=== PATIENT | male | born 1955 | race Caucasian/White ===

== ENCOUNTER 2019-08-13 01:49 | Observation (INO) | payer OTHER, SELFPAY ==
[2019-08-13] VITALS (12 sets, daily range): BP systolic 108–119; BP diastolic 65–78; PULSE 68–92; RESP 14–20; TEMP 36.6–37.3; O2SAT 96–100; BMI 26.1
--- NOTE | 2019-08-13 | ECHO_ITS ---
Patient Info Name: Terrence Song Age: 63 years : 1955 Gender: Male Ht: 74 in Wt: 203 lbs BSA: 2.20 m2 HR: 78 bpm BP: 118 / 78 mmHg Technical Quality: Good Exam Date: 08/13/2019 9:36 AM Exam Location: [facility] Pulmonary Exam Room: [facility] Patient Status: Inpatient Admit Date: 08/13/2019 Staff Ordering Physician: Nisha Benitez MD Drum Handler: Naomi Antoine RDCS Attending Provider: Hany Farris MD Exam Type: CA echo doppler color flow Study Info Indications - unresponsive seizure Complete two-dimensional, color flow and Doppler transthoracic echocardiogram is performed. Summary 1. Left ventricular chamber dimension is normal. 2. Left ventricular systolic function is normal, estimated at 65-70%. 3. The left ventricular diastolic function is grade II diastolic dysfunction. 4. E/e' 7 is not elevated. 5. There is mild aortic valve sclerosis. 6. There is mild aortic valve regurgitation. 7. There is trace tricuspid valve regurgitation. 8. No pulmonary hypertension, estimated pulmonary arterial systolic pressure is 25 mmHg. 9. There is trace pulmonic regurgitation. Left Ventricle E/e' 7 is not elevated. Left ventricular chamber dimension is normal. Left ventricular systolic function is normal, estimated at 65-70%. The left ventricular diastolic function is grade II diastolic dysfunction. Right Ventricle Right ventricular chamber dimension is normal. Right ventricular systolic function is normal. Left Atria Left atrial chamber dimension is normal. Right Atria Right atrial chamber dimension is normal. Aortic Valve The aortic valve is trileaflet. There is mild aortic valve sclerosis. There is no aortic valve stenosis. There is mild aortic valve regurgitation. Pulmonic Valve There is trace pulmonic regurgitation. Mitral Valve There is no mitral valve stenosis. There is no mitral valve regurgitation. Tricuspid Valve There is trace tricuspid valve regurgitation. No pulmonary hypertension, estimated pulmonary arterial systolic pressure is 25 mmHg. Pericardium/Pleural There is no pericardial effusion. Inferior Vena Cava Normal inferior vena cava with >50% collapse upon inspiration consistent with normal right atrial pressure, 5 mmHg. Aorta The aortic root size at the sinus of Valsalva is normal. Left Ventricular Outflow Tract Name Value Normal LVOT 2D LVOT Diameter 2.1 cm LVOT Doppler LVOT Peak Gradient 3 mmHg LVOT Mean Gradient 2 mmHg LVOT VTI 20 cm LVOT VTI/AV VTI Ratio 0.9 LVOT Stroke Volume 68 ml LVOT CO 12.6 l/min LVOT CI 5.7 l/min/m2 Pulmonic Valve Name Value Normal PV Doppler
--- NOTE | ~2019-08-13 | XR_ITS ---
EXAMINATION: XR chest 2V DATE: 08/13/2019 02:15 INDICATION: Seizure. Possible aspiration. TECHNIQUE: frontal and lateral views of the chest were obtained. COMPARISON: Chest radiograph dated 01/19/2013 FINDINGS: Small calcified nodules in the left lower lung zone and calcified left hilar and mediastinal lymph no onra consistent with old granulomatous disease. Mild apical pleural-parenchymal scarring. No other air space opacities, pulmonary edema, pleural effusion or pneumothorax. The cardiomediastinal silhouette is normal. Chronic mild anterior wedging of a midthoracic vertebral body. IMPRESSION: 1. No acute cardiopulmonary disease. Reviewed, dictated and finalized at location A. [employer]OR OF SPECIAL EVENTS
--- NOTE | ~2019-08-13 | CT_ITS ---
EXAMINATION: CT brain wo con DATE: 08/13/2019 02:10 INDICATION: Seizure TECHNIQUE: Computed tomography (CT) of the head was performed without intravenous contrast. The mA wa s adjusted according to patient size. Iterative reconstruction technique was employed. Exam dose: 68 1.00 mGy-cm total exam DLP. COMPARISON: 01/19/2013 CT brain 10/30/2016 MRI brain FINDINGS: No intracranial mass lesion or hemorrhage or cerebrovascular accident is detected. No midli ne shift or mass effect. Normal ventricular size. Carotid siphon internal carotid artery calcificatio ns are noted. No subdural or epidural hematoma is detected. No fracture or bone destruction of the cranial vault. Included paranasal sinuses and mastoid air cell s are unremarkable. IMPRESSION: No acute intracranial finding Reviewed, dictated and finalized at Location A. Reviewed, dictated and finalized at location B. POINTER
--- NOTE | ~2019-08-13 | US_ITS ---
EXAMINATION: US carotid duplex BI DATE: 08/13/2019 12:08 INDICATION: Seizure. Encephalopathy with unresponsive episode. TECHNIQUE: Grayscale, color Doppler, and pulsed Doppler images of the cervical carotid arteries were obtained. The degree of vessel stenosis is placed in one of the following categories: normal, <50%, 5 0-69%, >=70% but less than near-occlusion, near-occlusion, or total occlusion. Note that percent sten osis relative to normal distal artery lumen diameter is indirectly measured from velocity measurement s as described by Frankie, et al. Radiology 2003; 229:340-346. COMPARISON: 01/26/2004 FINDINGS: RIGHT: The right common carotid artery (CCA) peak systolic velocity (PSV) is 106 cm/s. The right internal ca rotid artery (ICA) PSV is 112 cm/s. The right ICA end-diastolic velocity (EDV) is 29 cm/s. The right ICA/CCA PSV ratio is 1.0. Grayscale and color Doppler images yield an estimate of <50% diameter reduc tion from plaque in the ICA. The external carotid artery (ECA) PSV is recorded on the summation image as 96 cm/s however the source image was not recorded. There is antegrade flow in the right vertebral artery. LEFT: The left CCA PSV is 115 cm/s. The left ICA PSV is 86 cm/s. The left ICA EDV is 31 cm/s. The left ICA/ CCA PSV ratio is 115. Grayscale and color Doppler images yield an estimate of <50% diameter reduction from plaque in the ICA. The ECA PSV is 1:15 cm/s. There is antegrade flow in the left vertebral milton ry. IMPRESSION: 1. <50% stenosis in the right internal carotid artery. 2. <50% stenosis in the left internal carotid artery. Reviewed, dictated and finalized at location A. PE WHEEL TOOTH CUTTER
--- NOTE | ~2019-08-13 | MR_ITS ---
EXAMINATION: MR brain/brain stem wo/w con DATE: 08/13/2019 08:02 INDICATION: Seizure TECHNIQUE: Magnetic resonance imaging (MRI) of the brain and brainstem was performed without and with 15 mL Multihance intravenous contrast. Sequences included sagittal and axial T1-weighted SE, axial d iffusion-weighted FS SE, axial T2*-weighted GRE, axial T2-weighted FLAIR, and axial T2-weighted FSE. Postcontrast axial, sagittal and coronal T1-weighted SE was obtained. Apparent diffusion coefficient (ADC) maps were created. COMPARISON: Head CT dated 08/13/2019 and brain MR dated 10/30/2016 FINDINGS: With well-defined 2.5 cm region of vasogenic edema sparing the overlying aguilar matter and with mild as sociated mass effect which results in mild enlargement of a gyrus in the left frontal lobe. Within th e region of vasogenic edema there is an 8 x 4 x 6 mm avidly enhancing lesion positioned somewhat ecce ntrically within the more cephalad and posterior aspect of the region of edema. There is significantl y more subtle and slightly larger ill-defined region of enhancement measuring up to 11 mm diameter lo cated more anteriorly and inferiorly within the region of edema. These regions of enhancement appear to correspond to the slightly hyperdense lesion identified on the prior head CT. There are no areas o f restricted diffusion to suggest acute infarction. No intracranial hemorrhage. There are a few addit ional scattered areas of nonspecific increased T2-weighted signal intensity in the cerebral white mat ter, predominantly involving the deep and periventricular white matter and without associated enhanci ng lesions most likely sequela of chronic small vessel ischemic disease. There are no intraparenchyma l signal abnormalities seen on the other pulse sequences. The ventricles are symmetric and normal in size. There are no abnormal extra-axial fluid collections. Flow voids are seen in the cerebral arteri es on the T2-weighted sequences consistent with their expected patency. Diffuse mild mucosal thickeni ng throughout the paranasal sinuses. Visualized orbits and soft tissues are unremarkable. IMPRESSION: 1. Approximately 2.5 cm region of vasogenic edema surrounding a couple smaller enhancing lesions in t he left frontal lobe which is concerning for malignancy and which could be either primary or metastat ic. Differential would include less likely infection, multiple sclerosis or infarct. Reviewed, dictated and finalized at location A. ID [employer] IMPRESSION: 1. Approximately 2.5 cm region of vasogenic edema surrounding a couple smaller enhancing lesions in the left frontal lobe which is concerning for malignancy a nd which could be either primary or metastatic. Differential would include less likely infection, multiple sclerosis or infarct.
--- NOTE | 2019-08-13 01:48 | ECG_ITS ---
Measurements Intervals [place] Rate: 90 P: 35 WA: 209 QRS: -3 QRSD: 95 T: 31 QT: 365 QTc: 447 Interpretive Statements SINUS RHYTHM BASELINE ARTIFACT- I, II, AVR, AVL, AVF, V1 NORMAL ECG Electronically Signed On 08-13-2019 6:59:45 SHIRT MAKER by Bruce French D.O.
--- NOTE | 2019-08-13 01:49 | ED.SEIZURE ---
HPI - Seizure General Chief Complaint: Seizure Stated Complaint: SEIZURE?? Time Seen by Provider: 08/13/19 01:50 Source: patient, family and RN notes reviewed Mode of arrival: EMS Limitations: no limitations History of Present Illness HPI Narrative: A 63 y/o male presents to the ED via EMS after having seizure like activity while asleep just [employer]. The pt states that he is unsure what happens and has no current complaints. Per states that she woke up to the pt shaking the bed and unresponsive for several minutes, so she called EMS. She reports that the pt was snoring, his eye's were fluttering, and that he had bitten his tongue which was bleeding. She denies the pt having any incontinence. The pt denies any changes in his vision, CP, N/V/D, ABD pain, numbness, weakness, or NIELSON. complaint: seizure Onset (ago): minute(s) Description of Episode: tonic-clonic movement -: minutes(s) (several) Witnessed: Yes - by Bystander () Trauma: Yes (bit tongue) Seizure History: No Place: home Possible Precipitating Event: none Associated symptoms: denies other symptoms Treatments prior to arrival: none Related Data Allergies Allergy/AdvReac Type Severity Reaction Status Date / Time No Known Allergies Allergy Verified 03/11/18 05:16 Review of Systems Review of Systems: Narrative: EYES: Denies visual changes. ENT: Reports biting his tongue. CARDIOVASCULAR: Denies chest pain. GASTROINTESTINAL: Denies abdominal pain, nausea, vomiting, or diarrhea. NEUROLOGIC: Denies headache, numbness, or weakness. Reports seizure like activity. All systems reviewed & are unremarkable except as noted in HPI and below PMFSH Past Medical History Medical History (Updated 08/13/19 @ 03:24 by Yajaira Pizano MD) Anxiety Hx of migraines Surgical History Surgical History (Updated 08/13/19 @ 02:10 by Alverto Panchal) History of appendectomy History of local excision of skin lesion History of tonsillectomy and adenoidectomy Social History Social History (Updated 08/13/19 @ 02:11 by Alverto Panchal) Smoking status: Never smoker Comments PCP: SCAR Anderson. Exam Narrative: Exam Narrative: GENERAL: Well-appearing, well-nourished, and in no acute distress. HEAD: Normocephalic, atraumatic. EYES: PERRLA and EOMI. ENT: Nares clear, no rhinorrhea or epistaxis. Mucous membranes moist. Abrasions to VITA and tip of tongue. NECK: Supple. CHEST: Clear to auscultation. No respiratory distress. HEART: Regular rate and rhythm. No murmur heard. Normal peripheral pulses. ABDOMEN: Soft, nontender, nondistended, normal active bowel sounds. EXTREMITIES: Normal range of motion. No edema. SKIN: Warm, dry, no rash. NEURO: No focal deficits. Alert and oriented X3. Finger to nose intact bilaterally. EOMs intact without nystagmus. No facial droop/asymmetry noted bilaterally. Grimace intact. Intact sensation in face. Hearing intact bilaterally. Shoulder shrug intact. Strength 5/5 bilateral upper extremities. Strength 5/5 bilateral lower extremities. Reflexes 2+ patellar. Ambulatory exam deferred. Course Course Emergency Course: Patient seems to have had a first-time seizure based on symptoms. At the time of initial assessment, ABCs are intact and vital signs are stable. Patient is well-appearing, no confusion, no pain. He has no recollection of this event. He does have bilateral tongue abrasions. No neurological deficits. CT scan shows no acute intracranial normality. Vision radiologist did comment there is some motion artifact of the temporal lobe. Patient without electrolyte abnormalities. No sign of infection clinically. Patient was loaded with Keppra as I do feel that symptoms explained by patient's who witnessed this are very consistent with a first-time seizure. Neurology was consulted, recommended obtaining MRI and EEG ordered for the morning. Patient was then admitted in stable condition. Vital Signs Vital signs: Vital Signs Temperature 36.8 C 08/13/19
[2019-08-13 02:06] LABS: Basophils Percent Auto 0.4 % (0.2-1.2); Eosinophils Absolute Auto 0.4 K/mm3 (0-0.3); Eosinophils Percent Auto 5.9 % (0-4.4); Hematocrit 47.2 % (42.0-52.0); Hemoglobin 15.9 g/dL (14.0-18.0); Immature Granulocyte Absolute 0.04 K/mm3 (0.00-0.031); Immature Granulocyte Percent A 0.5 % (0-0.5); Lymphocytes Absolute Auto 1.86 K/mm3 (0.9-3.2); Lymphocytes Percent Auto 25.1 % (18.3-44.2); Mean Corpuscular HGB Conc 33.7 g/dl (32-36); Mean Corpuscular Volume 89.1 fl (80-100); Monocytes Absolute Auto 0.6 K/mm3 (0.1-0.6); Monocytes Percent Auto 8.4 % (2.6-8.5); Neutrophils Absolute Auto 4.4 K/mm3 (1.3-6.7); Neutrophils Percent Auto 59.7 % (45.5-73.1); Platelet Count Result 201 k/mm3 (150-375); Red Cell Distribution Width 12.5 % (11.5-14.5); White Blood Count 7.4 K/mm3 (4.5-10.0)
[2019-08-13 02:19] LABS: Blood Urea Nitrogen 24 mg/dL (9-20); Carbon Dioxide 24 mmol/L (22-30); Chloride 101 mmol/L (98-107); Estimated CRCL calculation 73 ml/min; Estimated Glomerular Filt Rate > 60; Glucose 130 mg/dL (75-110); Potassium 3.7 mmol/L (3.4-5.0); Sodium 138 mmol/L (137-145)
[2019-08-13] MEDS: ONDANSETRON INJ 4 MG/2 ML VIAL IV PUSH (02:25)
[2019-08-13] MEDS: SODIUM CHLORIDE 0.9% IV 1,000 ML 999 ML IV CONT (02:25)
[2019-08-13] MEDS: levETIRAcetam 1000MG/NACL100ML 1,000 MG/100 ML BAG 400 MG IVPB (02:30)
[2019-08-13 02:47] LABS: Lactic Acid Reflex 2.3 mmol/L (0.7-2.1)
[2019-08-13 03:16] LABS: Add Urine Microscopic? YES; Appearance Urine Clear (Clear); Bacteria Urine Trace /hpf; Bilirubin Urine Negative (Negative); Blood Urine 1+ (Negative); Color Urine Yellow (Yellow); Glucose Urine UA Negative (Negative); Ketones Urine Negative (Negative); Leukocyte Esterase Ur Negative LEU/UL (Negative); Mucus Urine Few /lpf; Nitrate Urine Negative (Negative); Protein Urine 1+ mg/dL (Negative); Specific Grav Ur 1.023 (1.001-1.035); Urobilinogen Urine Negative mg/dL (<2.0); WBC Urine 0-3 /hpf
[2019-08-13 03:38] LABS: Amphetamine Screen Urine Negative (Negative); Barbiturate Screen Urine Negative (Negative); Benzodiazepines Screen Urine Negative (Negative); Cannabinoid Screen Urine Negative (Negative); Cocaine Screen Urine Negative (Negative); Methadone Screen Urine Negative (Negative); Opiate Screen Urine Negative (Negative); Phencyclidine Screen Urine Negative (Negative)
--- NOTE | 2019-08-13 04:02 | PM.IMHP ---
H&P: HPI History of Present Illness Chief complaint: Unresponsive Episode Narrative: This is a pleasant 63 year old male with known history of anxiety on chronic Zoloft who presented to the hospital today after suffering an unresponsive episode at home. The patient and his were asleep when she suddenly woke up because the patient was shaking in the bed. She immediately attempted to wake him up and states that he was face down in the bed and it sounded like he was snoring. She noticed that his whole body was shaking with a fine tremor. His daughter noted that his eyes were fluttering. The patient's and daughter rolled him over and noticed blood on his pillow and called EMS. The patient did not lose urine and did not regain consciousness until he was in the ambulance. It's unknown the exact amount of time that he was unresponsive for. He has no previous history of seizures or seizure-like activity. He denies any recent head trauma. He has not suspended any of his home medications recently. The patient does not drink alcohol. The patient initially felt tired when he regained consciousness but now he denies feeling tired or sleepy. He has no previous history of arryhtmias. He is currently asymptomatic and denies any focal neurological deficits. No blurry or double vision, no numbness or tingling, no focal weakness, no headache, fevers, neck stiffness, photophobia, chest pain, cough, sore throat, shortness of breath, abdominal pain, nausea, vomiting, dysuria, hematuria, diarrhea, or rectal bleeding. The patient was evaluated in the ER today and brain CT was unremarkable for acute pathology. Neurology was consulted and has asked that the patent have an EEG and be admitted for observation. Review of Systems Review of Systems: All systems reviewed & are unremarkable except as noted in HPI and below PMFSH Past Medical History Medical History Anxiety Hx of migraines Surgical History Surgical History History of appendectomy History of local excision of skin lesion History of tonsillectomy and adenoidectomy Social History Social History (Updated 08/13/19 @ 04:10 by Hany Farris MD) Smoking status: Never smoker Alcohol intake: never Substance use: never Living arrangements: with family Meds Home Medications and Allergies Home Medications Medication Instructions Recorded Confirmed Type sertraline 50 mg PO HS 08/13/19 History Allergies Allergy/AdvReac Type Severity Reaction Status Date / Time No Known Allergies Allergy Verified 08/13/19 03:42 Vital Signs Vital Signs - 24 hr 08/13/19 01:44 08/13/19 01:55 Temperature 36.8 C Pulse Rate 92 89 Respiratory Rate 14 Blood Pressure 111/76 Pulse Oximetry 98 Exam Const: General: cooperative, healthy appearing, no acute distress, alert and awake Nutritional Appearance: well nourished Orientation/consciousness: patient oriented x3 HENMT: Head: normal to inspection General nose exam: Normal external nose present Face and sinus: normal facial exam Mouth: Yes Normal oral and palatal mucosa present, Yes oropharynx normal and Yes tongue abnormal (two lacerations - tip of tongue and right side++ ) Eyes: Pupils: Equal, round and reactive pupils present EOM: EOMs intact bilaterally Neck: Neck: supple and no JVD Thyroid: thyroid normal Lymphatic: lymphadenopathy not noted Resp: Effort & Inspection: normal respiratory effort Auscultation: clear to auscultation bilaterally Cardio: Rate: regular rate Rhythm: regular rhythm Heart sounds: no murmurs GI: Inspection: normal to inspection Auscultation: normal bowel sounds Skin: General skin exam: normal color and no rashes or lesions noted Neuro: General: patient oriented x3 Cranial nerves: Yes CN's II-XII intact bilaterally and Yes Equal, round and reactive pupils present Speech:
--- NOTE | 2019-08-13 04:44 | ADMGEN ---
This patient, Terrence Song, was admitted to [facility] Surg Room 316-01. Patient/family oriented to hospital policies and general routines including ID bracelet, bed and alarms, visiting hours, pain management, procedures, bathroom and other care routines, personal items, smoking policy, room service/diet, and visiting hours. Valuables list has been completed. Information on how to activate the Rapid Response Team has been discussed. Patient/Family are encouraged to report perceived risks to care and to ask questions if they do not understand what they are told or what they should do.
[2019-08-13] MEDS: SODIUM CHLORIDE 0.9% IV 1,000 ML 125 ML IV CONT ×3 (05:17→22:33)
[2019-08-13 05:30] LABS: Reflex Lactic Acid Yes or No Add Lactic
[2019-08-13 06:07] LABS: Alanine Aminotransferase 18 U/L (4-50); Albumin Level 3.9 g/dL (3.5-5.1); Alkaline Phosphatase 78 U/L (38-126); Aspartate Amino Transferase 23 U/L (17-59); Bilirubin,Total 0.6 mg/dL (0.2-1.3); Blood Urea Nitrogen 23 mg/dL (9-20); Calcium 8.8 mg/dL (8.4-10.2); Carbon Dioxide 27 mmol/L (22-30); Chloride 101 mmol/L (98-107); Estimated CRCL calculation 80 ml/min; Estimated Glomerular Filt Rate > 60; Glucose 106 mg/dL (75-110); Magnesium 2.3 mg/dL (1.6-2.3); Potassium 4.1 mmol/L (3.4-5.0); Sodium 136 mmol/L (137-145)
--- NOTE | 2019-08-13 08:30 | NEURO_ITS ---
TEST: ELECTROENCEPHALOGRAM DIAGNOSIS: SEIZURE PATIENT NUMBER: [id number] EEG NUMBER: [id number] RECORDING DATE: 08/13/19 CLINICAL HISTORY: Patient was home sleeping when he began shaking and was unresponsive. Says he had a similar incident about 15 years ago. CONDITION OF RECORDING: Awake, drowsy and sleep EEG DESCRIPTION: Basic resting occipital frequency consists of large amount of well organized low to medium voltage 9-11hz alpha mixed with minimal amount of low voltage 15-18hz beta. During drowsiness low voltage beta activity is seen diffusely mixed with waxing and waning posterior alpha rhythms. Bilateral symmetrical sleep activity is seen during sleep. Hyperventilation and photic stimulation were not done. Nonparoxysmal. Nonfocal. Nonlateralizing. IMPRESSION: No significant abnormalities noted. MTDD
[2019-08-13] MEDS: levETIRAcetam 500 MG TABLET PO ×2 (12:19→20:40)
--- NOTE | 2019-08-13 13:14 | PM.IMPN ---
Progress Note: A&P Assessment and Plan (1) New onset seizure: Code(s): R56.9 - Unspecified convulsions Status: Acute Assessment and Plan: 08/13/19 13:14 Patient is 63-year-old male with no significant past medical history other than migraine and anxiety he was brought to the emergency department as he was found somnolent shaking during his sleep patient did not have any bowel or bladder incontinence or tongue biting and upon arrival to emergency depart there were no significant postictal symptoms, patient had a CT scan of the head which is negative for any acute injury however MRI of the brain approximately 2.5 cm region of vasogenic edema surrounding a couple smaller enhancing lesions in the left frontal lobe which is concerning for malignancy and which could be either primary or metastatic. Differential would include less likely infection, multiple sclerosis or infarct. Discussed with Dr. Cano neurologist suspect the patient may have seizures started the patient on Keppra, to further evaluate patient had a cardiac echo which showed the patient has a normal LV function with ejection fraction of 65% and grade 2 diastolic dysfunction, carotid US is pending. Patient is clinically stable, he has not had any seizure while in the hospital he denies any chest pain shortness of breath palpitation fever or chills he denies any weakness in upper or lower extremities and he has no difficulty with speech (2) Unresponsive episode: Code(s): R41.89 - Other symptoms and signs involving cognitive functions and awareness Status: Acute Assessment and Plan: Etiology uncertain possibly seizure patient is on Keppra will monitor seen by neurologist (3) Anxiety: Code(s): F41.9 - Anxiety disorder, unspecified Status: Chronic (4) Elevated lactic acid level: Code(s): R79.89 - Other specified abnormal findings of blood chemistry Status: Acute Assessment and Plan: Most likely secondary to possible seizures unlikely secondary to infection the lactic acid has resolved Subjective Date/time seen: 08/13/19 13:14 Patient is 63-year-old male with no significant past medical history other than migraine and anxiety he was brought to the emergency department as he was found somnolent shaking during his sleep patient did not have any bowel or bladder incontinence or tongue biting and upon arrival to emergency depart there were no significant postictal symptoms, patient had a CT scan of the head which is negative for any acute injury however MRI of the brain approximately 2.5 cm region of vasogenic edema surrounding a couple smaller enhancing lesions in the left frontal lobe which is concerning for malignancy and which could be either primary or metastatic. Differential would include less likely infection, multiple sclerosis or infarct. Discussed with Dr. Cano neurologist suspect the patient may have seizures started the patient on Keppra, to further evaluate patient had a cardiac echo which showed the patient has a normal LV function with ejection fraction of 65% and grade 2 diastolic dysfunction, carotid US is pending. Patient is clinically stable, he has not had any seizure while in the hospital he denies any chest pain shortness of breath palpitation fever or chills he denies any weakness in upper or lower extremities and he has no difficulty with speech Review of Systems Review of Systems: All systems reviewed & are unremarkable except as noted in HPI and below Exam Narrative: Exam Narrative: Patient is a fluent speech he appears to be stable Const: General: comfortable and no acute distress HENMT: General nose exam: Normal nares present Mouth: Yes moist mucous membranes Eyes: General: appearance normal, both eyes and all related structures Sclera: sclerae normal Neck: Neck: supple Resp: Effort & Inspection: normal respiratory effort Auscultation: clear to auscultation bilaterally Cardio: Rate: reg
--- NOTE | 2019-08-13 13:35 | CONS_ITS ---
DATE OF CONSULTATION: HISTORY: This 63 years old right-handed male has been admitted to [facility] for the complaint of unresponsive episode at home. As per the information available from his , they were sleeping and she suddenly woke up because the patient was shaking in the bed. She immediately attempted to wake him up and stated that he was face down on the bed and sounded like he was snoring. His whole body was shaking. His daughter noted his eyes were fluttering. The patient's and daughter rolled him over and noted blood on his pillow and called the EMS. He did not become incontinent. He regained the consciousness only when he was in the ambulance and was unresponsive for unclear duration. The patient had no history of previous seizure. Gives no history of recent or remote trauma. Does not drink alcohol and when he came back, became unconscious, he was extremely tired. CT was done in the emergency room, which was negative. He was admitted to the hospital for further evaluation, particularly for the EEG. Even though the CT scan of the head was negative and considering the age of the patient, MRI was definitely necessary. MEDICAL HISTORY: He has ongoing history of 1. Anxiety. 2. Migraines. 3. No smoking. MEDICATIONS: Has been taking sertraline 50 mg at night. ALLERGIES: NOT ALLERGIC TO ANY MEDICATION. PHYSICAL EXAMINATION: VITAL SIGNS: Initial vital signs were stable. GENERAL: On examination today, he was awake, alert, cooperative, in no obvious acute distress. happened to be in the room at the bedside. HEENT: Head was normocephalic with no cranial bruit. Ear, nose, and throat exam was normal. NECK: Supple with no cervical bruit. No thyromegaly. No lymphadenopathy. HEART: Regular with no murmur. LUNGS: Clear to auscultation. ABDOMEN: Soft with no organomegaly. NEUROLOGICAL: He had normal mental status. Normal speech. Pupils were round and regular. Rosa of vision full. Extraocular movements full. Face symmetrical. Tongue midline. Motor examination revealed him to have no drift of 1 side or other side against gravity. Tone normal. Reflexes symmetrical. Plantars downgoing. No evidence of gross sensory or cerebellar deficit. IMPRESSION: Most likely first episode of seizure with no history of seizure in the past even as a child. EEG will be obtained in addition to the MRI of the brain for further recommendation. Most likely, he will benefit from the anticonvulsant. All the pros and cons were discussed with the family because he will not be able to drive without taking the anticonvulsant and he works at the factory. He agreed and he will be started on Keppra 500 mg b.i.d. ALMA SCHAEFFER M.D. CASH SALES AUDIT CLERK CASH SALES AUDIT CLERK D I MT: Minh
[2019-08-13] MEDS: SERTRALINE HCL 50 MG TABLET PO (20:39)
[2019-08-13] MEDS: ASPIRIN 81 MG ENTERIC TABLET PO (20:40)
[2019-08-14] VITALS (7 sets, daily range): BP systolic 114–118; BP diastolic 60–63; PULSE 71–86; RESP 16–20; TEMP 36.7–37; O2SAT 96–100
[2019-08-14] MEDS: SODIUM CHLORIDE 0.9% IV 1,000 ML 125 ML IV CONT ×2 (06:38→14:47)
[2019-08-14] MEDS: levETIRAcetam 500 MG TABLET PO (09:14)
--- NOTE | 2019-08-14 10:18 | PCPTNOTE ---
No Care Plan initiated due to patient being discharged today.
--- NOTE | 2019-08-14 11:32 | WPDNEUROPN ---
Progress Note: A&P Assessment and Plan (1) New onset seizure: Code(s): R56.9 - Unspecified convulsions Status: Acute (2) Brain tumor: Code(s): D49.6 - Neoplasm of unspecified behavior of brain Status: Acute (3) Anxiety: Code(s): F41.9 - Anxiety disorder, unspecified Status: Chronic Review of Systems Review of Systems: All systems reviewed & are unremarkable except as noted in HPI and below Exam Const: General: cooperative, healthy appearing, comfortable and no acute distress Nutritional Appearance: average body habitus Orientation/consciousness: patient oriented x3 Limitations: no limitations HENMT: Head: normocephalic Eyes: General: appearance normal, both eyes and all related structures Visual Perera: normal visual perera by confrontation Pupils: Equal, round and reactive pupils present and Pupils normal by confrontation EOM: EOMs intact bilaterally Neck: Neck: full ROM Resp: Auscultation: clear to auscultation bilaterally Cardio: Rate: regular rate Rhythm: regular rhythm GI: Auscultation: normal bowel sounds Skin: General skin exam: no rashes or lesions noted Neuro: General: patient oriented x3, gait normal, moves all extremities, no focal motor deficits and CN's II-XI intact bilaterally Deep tendon reflexes (DTR's): Right triceps reflex intensity grade: 1+, Left triceps reflex intensity grade: 1+, Rt Biceps (C5, C6): 1+, Left biceps reflex intensity grade: 1+, Right brachioradialis reflex intensity grade: 1+, Left brachioradialis reflex intensity grade: 1+, Right patellar reflex intensity grade: 1+, Left patellar reflex intensity grade: 1+, Right ankle reflex intensity grade: 1+ and Left ankle reflex intensity grade: 1+ Plantar Reflex Responses: downgoing: bilateral Coordination: [id number] test normal Psych: Thought process: Normal thought process present Thought content: Yes Normal thought content present Insight: Good insight present (Psych) Objective Data Vital Signs Vital Signs: Vital Signs - 24 hr 08/13/19 12:00 08/13/19 14:00 08/13/19 16:00 Temperature 36.6 C Pulse Rate 80 73 75 Respiratory Rate 20 Blood Pressure 117/65 Pulse Oximetry 98 08/13/19 20:00 08/13/19 22:00 01/23/20 00:00 Temperature 37.3 C Pulse Rate 89 78 77 Respiratory Rate 20 Blood Pressure 108/66 Pulse Oximetry 97 08/14/19 04:00 08/14/19 06:00 Temperature 37.0 C Pulse Rate 75 71 Respiratory Rate 20 Blood Pressure 118/63 Pulse Oximetry 96 Intake/Output Intake/Output: Intake & Output 08/11/19 08/12/19 08/13/19 08/14/19 23:59 23:59 23:59 23:59 Intake Total 4220 1360 Output Total 300 Balance 3920 1360 Meds/Results Medications: Active Medications Generic Name Dose Route Start Last Admin Trade Name Freq PRN Reason Stop Dose Admin Acetaminophen 650 mg 08/13/19 03:19 Tylenol Tablet PO Q4H PRN Mild Pain (1-3) or Fever Aspirin 81 mg 08/13/19 21:00 08/13/19 20:40 Aspirin Ec PO 81 mg HS EMANUEL Administration Sodium Chloride 1,000 mls @ 125 mls/hr 08/13/19 04:00 08/14/19 06:38 Normal Saline Iv IV CONT 125 mls/hr .Q8H EMANUEL Administration Levetiracetam 500 mg 08/13/19 11:00 08/14/19 09:14 Keppra Tablet PO 500 mg Q12HR EMANUEL Administration Sertraline HCl 50 mg 08/13/19 21:00 08/13/19 20:39 Zoloft PO 50 mg HS EMANUEL Administration Radiology Results: ITS Impressions Chest X-Ray 08/13/19 08:12 IMPRESSION: 1. No acute cardiopulmonary disease. Head CT 08/13/19 08:27 IMPRESSION: No acute intracranial finding Brain MRI 08/13/19 08:31 IMPRESSION: 1. Approximately 2.5 cm region of vasogenic edema surrounding a couple smaller enhancing lesions in the left frontal lobe which is concerning for malignancy and which could be either primary or metastatic. Differential would include less likely infection, multiple sclerosis or infarct. Carotid Doppler Study
--- NOTE | 2019-08-14 14:29 | PM.IMPN ---
Progress Note: A&P Assessment and Plan (1) New onset seizure: Code(s): R56.9 - Unspecified convulsions Status: Acute Assessment and Plan: 08/14/19 14:29 Patient is 63-year-old male with no significant past medical history other than migraine and anxiety he was brought to the emergency department as he was found somnolent shaking during his sleep patient did not have any bowel or bladder incontinence or tongue biting and upon arrival to emergency depart there were no significant postictal symptoms, patient had a CT scan of the head which is negative for any acute injury however MRI of the brain approximately 2.5 cm region of vasogenic edema surrounding a couple smaller enhancing lesions in the left frontal lobe which is concerning for malignancy and which could be either primary or metastatic. Differential would include less likely infection, multiple sclerosis or infarct. Discussed with Dr. Cano neurologist suspect the patient may have seizures started the patient on Keppra, to further evaluate patient had a cardiac echo which showed the patient has a normal LV function with ejection fraction of 65% and grade 2 diastolic dysfunction, carotid US is pending. Patient is clinically stable, he has not had any seizure while in the hospital he denies any chest pain shortness of breath palpitation fever or chills he denies any weakness in upper or lower extremities and he has no difficulty with speech, Patient was seen by Dr. Cano today and recommended to follow up with a neuro surgeon as soon as possible, I have called [facility] and waiting for answer. (2) Unresponsive episode: Code(s): R41.89 - Other symptoms and signs involving cognitive functions and awareness Status: Acute Assessment and Plan: Etiology uncertain possibly seizure patient is on Keppra will monitor seen by neurologist (3) Anxiety: Code(s): F41.9 - Anxiety disorder, unspecified Status: Chronic (4) Elevated lactic acid level: Code(s): R79.89 - Other specified abnormal findings of blood chemistry Status: Acute Assessment and Plan: Most likely secondary to possible seizures unlikely secondary to infection the lactic acid has resolved Additional Plan Date of service was 08/13/2019 at 03:30 hrs. Subjective Date/time seen: 08/14/19 14:29 Patient is 63-year-old male with no significant past medical history other than migraine and anxiety he was brought to the emergency department as he was found somnolent shaking during his sleep patient did not have any bowel or bladder incontinence or tongue biting and upon arrival to emergency depart there were no significant postictal symptoms, patient had a CT scan of the head which is negative for any acute injury however MRI of the brain approximately 2.5 cm region of vasogenic edema surrounding a couple smaller enhancing lesions in the left frontal lobe which is concerning for malignancy and which could be either primary or metastatic. Differential would include less likely infection, multiple sclerosis or infarct. Discussed with Dr. Cano neurologist suspect the patient may have seizures started the patient on Keppra, to further evaluate patient had a cardiac echo which showed the patient has a normal LV function with ejection fraction of 65% and grade 2 diastolic dysfunction, carotid US is pending. Patient is clinically stable, he has not had any seizure while in the hospital he denies any chest pain shortness of breath palpitation fever or chills he denies any weakness in upper or lower extremities and he has no difficulty with speech, Patient was seen by Dr. Cano today and recommended to follow up with a neuro surgeon as soon as possible, I have called [facility] and waiting for answer. Review of Systems Review of Systems: All systems reviewed & are unremarkable except as noted in HPI and below Exam Narrative: Exam Narrative: Patient is a fluent speech he appears to be stabl
--- NOTE | 2019-08-14 15:28 | PM.TDS ---
Transfer Discharge Sum: Prov Provider Date of admission: 08/13/19 03:19 Primary care physician: Joleen Anderson, [facility]- Admitting clinician: Hany Farris MD Consults: 08/13/19 03:21 Consult to Physician Routine Comment: Consulting Provider: Brijesh Cano Reason for consultation: possible seizure Has provider been notified: Yes DS: Diagnosis Admitting Diagnosis Admitting Diagnosis: Other symptoms and signs involving cognitive functions and awareness This is a pleasant 63 year old male with known history of anxiety on chronic Zoloft who presented to the hospital today after suffering an unresponsive episode at home. The patient and his were asleep when she suddenly woke up because the patient was shaking in the bed. She immediately attempted to wake him up and states that he was face down in the bed and it sounded like he was snoring. She noticed that his whole body was shaking with a fine tremor. His daughter noted that his eyes were fluttering. The patient's and daughter rolled him over and noticed blood on his pillow and called EMS. The patient did not lose urine and did not regain consciousness until he was in the ambulance. It's unknown the exact amount of time that he was unresponsive for. He has no previous history of seizures or seizure-like activity. He denies any recent head trauma. He has not suspended any of his home medications recently. The patient does not drink alcohol. The patient initially felt tired when he regained consciousness but now he denies feeling tired or sleepy. He has no previous history of arryhtmias. He is currently asymptomatic and denies any focal neurological deficits. No blurry or double vision, no numbness or tingling, no focal weakness, no headache, fevers, neck stiffness, photophobia, chest pain, cough, sore throat, shortness of breath, abdominal pain, nausea, vomiting, dysuria, hematuria, diarrhea, or rectal bleeding. The patient was evaluated in the ER today and brain CT was unremarkable for acute pathology. Neurology was consulted and has asked that the patent have an EEG and be admitted for observation Discharge Diagnosis (1) New onset seizure: Code(s): R56.9 - Unspecified convulsions Status: Acute Assessment and Plan: 08/14/19 14:29 Patient is 63-year-old male with no significant past medical history other than migraine and anxiety he was brought to the emergency department as he was found somnolent shaking during his sleep patient did not have any bowel or bladder incontinence or tongue biting and upon arrival to emergency depart there were no significant postictal symptoms, patient had a CT scan of the head which is negative for any acute injury however MRI of the brain approximately 2.5 cm region of vasogenic edema surrounding a couple smaller enhancing lesions in the left frontal lobe which is concerning for malignancy and which could be either primary or metastatic. Differential would include less likely infection, multiple sclerosis or infarct. Discussed with Dr. Cano neurologist suspect the patient may have seizures started the patient on Keppra, to further evaluate patient had a cardiac echo which showed the patient has a normal LV function with ejection fraction of 65% and grade 2 diastolic dysfunction, carotid US is pending. Patient is clinically stable, he has not had any seizure while in the hospital he denies any chest pain shortness of breath palpitation fever or chills he denies any weakness in upper or lower extremities and he has no difficulty with speech, Patient was seen by Dr. Cano today and recommended to follow up with a neuro surgeon as soon as possible, I called [facility] patient was accepted by neurosurgeon at the hospital and patient is being transferred, (2) Unresponsive episode: Code(s): R41.89 - Other symptoms and signs involving cognitive functions and awareness Status: Acute Assessment and Plan
== END 2019-08-14 18:45 | disposition short-term general hospital (02) ==
LOC: ANHED 03:24 → ANH2MED 04:08 → ANH3MEDSUR 12:48 → ANH2MED 08-15 10:39 → ANH3MEDSUR 08-15 10:39
PROVIDERS: Admitting Provider Family Medicine; Emergency Provider Emergency Medicine; PCP Nurse Practitioner Family; Visit Provider Family Medicine
DX: R56.9 Unspecified convulsions (principal); R41.89 Other symptoms and signs involving cognitive functions and awareness; D49.6 Neoplasm of unspecified behavior of brain; F41.9 Anxiety disorder, unspecified; R79.89 Other specified abnormal findings of blood chemistry; Z79.899 Other long term (current) drug therapy
CPT/HCPCS: 36415; 70450; 70553; 71046; 80048; 80053; 80307; 81001; 83605; 83735; 84100; 84443; 85025; 93005; 93306; 93880; 95816; 96360; 96361; 96374; 96375; 97161; 97165; 99285; A9270; A9577; G0378; J1953; J2405; J7030